=== PATIENT | male | born 1935 | race Caucasian/White ===

== ENCOUNTER 2018-02-27 08:54 | Inpatient (IN) | payer MEDICARE ==
[~2018-02-27] VITALS: Ht 165.1 cm; Wt 97.6 kg
[~2018-02-27 08:54] MED LIST: ATOR20TA PO; CHOL100046 PO; FERR325T28 PO; FLUO20CA39 PO; GABA100C PO; GABA300C PO; LANTUS SQ; LORA0.5T PO; LOSA25TA96 PO; METO25TA6 PO; NORCO10T PO; OMEP-50 PO; WARF1TAB PO
[2018-02-27] MEDS ORDERED: GLIP5TAB26 PO (09:43)
[2018-02-27] MEDS ORDERED: LEVO500T2 PO (09:43)
[2018-02-27] MEDS ORDERED: FURO-150 PO (09:43)
[2018-02-27 10:25] VITALS: BP 136/66
[2018-02-27] MEDS ORDERED: pneumococcal 23-VAL P-sac vacc 25 mcg/0.5ml vial IMVAC ONE (10:25)
[2018-02-27] MEDS ORDERED: METO25TA6 PO (10:28)
[2018-02-27] MEDS ORDERED: vancomycin/NS 1 GM ADD-VANTAGE 250 ML X 1 DOSE IV ONE (10:35)
[2018-02-27] MEDS ORDERED: HYDROcodone/acetaminophen 10/325mg tab PO PRN (10:50)
[2018-02-27 11:00] VITALS: BP 125/54
[2018-02-27 11:01] LABS: BASOPHILS % (AUTO) 0.3 % (0-1); EOSINOPHILS # (AUTO) 0.5 X10'3 (0-0.9); EOSINOPHILS % (AUTO) 5.9 % (0-6); HEMATOCRIT 39.3 % (42.0-52.0); HEMOGLOBIN 12.8 g/dl (14.0-17.9); LYMPHOCYTES # (AUTO) 1.3 X10'3 (1.1-4.8); LYMPHOCYTES % (AUTO) 15.7 % (21-51); MEAN CORPUSCULAR HEMOGLOBIN 28.4 PG (27.0-31.0); MEAN CORPUSCULAR HGB CONC 32.6 % (33.0-36.5); MEAN CORPUSCULAR VOLUME 87.1 FL (78-98); MEAN PLATELET VOLUME 8.5 FL (7.4-10.4); MONOCYTES # (AUTO) 0.7 X10'3 (0-0.9); MONOCYTES % (AUTO) 8.9 % (2-12); NEUTROPHILS # (AUTO) 5.7 X10'3 (1.8-7.7); NEUTROPHILS % (AUTO) 69.2 % (42-75); PLATELET COUNT 279 X10'3 (140-440); RED BLOOD COUNT 4.51 X10'6 (4.70-6.10); WHITE BLOOD COUNT 8.2 X10'3 (4.5-11.0)
[2018-02-27 11:06] LABS: INR 2.6 INR; PROTHROMBIN TIME 25.9 SECONDS (9.0-12.0)
[2018-02-27 11:11] LABS: ANION GAP 9 (8-16); BLOOD UREA NITROGEN 36 MG/DL (7-18); CHLORIDE 106 MMOL/L (99-107); CREATININE 2.46 MG/DL (0.60-1.10); GLUCOSE 135 MG/DL (70-104); POTASSIUM 5.5 MMOL/L (3.5-5.1); SODIUM 142 MMOL/L (135-145); TOTAL CARBON DIOXIDE 26.7 MMOL/L (24-32)
[2018-02-27 11:12] LABS: ALANINE AMINOTRANSFERASE 40 U/L (12-78); ALBUMIN/GLOBULIN RATIO 0.8 (1.1-1.5); ALKALINE PHOSPHATASE 92 IU/L (46-116); ASPARTATE AMINO TRANSFERASE 34 U/L (10-37); BILIRUBIN,TOTAL 0.5 MG/DL (0.1-1.0); BUN/CREATININE RATIO 14.6 (5.4-32.0); CALCIUM 8.8 MG/DL (8.5-10.1); TOTAL PROTEIN 6.8 G/DL (6.4-8.2); eGFR 25 ML/MIN
[2018-02-27] MEDS ORDERED: pantoprazole 40mg Tablet.DR PO ONE (11:30)
[2018-02-27] MEDS: metoprolol tartrate 25mg tablet PO SCH ×3 (12:00→20:48)
[2018-02-27] MEDS ORDERED: insulin glargine (Lantus) pen - multi-dose SQ SCH ×2 (12:30→21:00)
[2018-02-27] MEDS: FLUoxetine 20mg capsule PO SCH (14:14)
[2018-02-27] MEDS: vitamin D (cholecalciferol) 1,000 unit tablet PO SCH (14:15)
[2018-02-27] MEDS: gabapentin 300mg capsule PO SCH ×3 (14:15→20:48)
[2018-02-27] MEDS: gabapentin 100mg capsule PO SCH ×3 (14:16→20:48)
[2018-02-27] MEDS: furosemide 20MG tablet PO SCH (14:16)
[2018-02-27 15:00] VITALS: BP 101/49
[2018-02-27] MEDS ORDERED: INSU100V9 SQ (16:25)
[2018-02-27 19:00] VITALS: BP 105/54
[2018-02-27] MEDS: LORazepam 0.5 MG tablet PO SCH (20:48)
[2018-02-27] MEDS: atorvastatin 20mg tablet PO SCH (20:49)
[2018-02-27 23:00] VITALS: BP 94/61
[2018-02-28 03:00] VITALS: BP 128/63
[2018-02-28] MEDS ORDERED: dextrose ORAL solution 15 GM/59 ML bottle PO PRN ×2 (06:10)
[2018-02-28] MEDS ORDERED: dextrose 50%-water 50ml dispensing syringe IV PRN ×2 (06:10)
[2018-02-28] MEDS ORDERED: glucagon, human recombinant 1mg kit SUBCUT PRN (06:10)
[2018-02-28] MEDS ORDERED: MESSAGE TO PHARMACY PO ONE (06:10)
[2018-02-28] MEDS ORDERED: magnesium hydroxide 30ml (MOM) UD suspension PO PRN (06:10)
[2018-02-28 07:00] VITALS: BP 110/65
[2018-02-28 07:01] LABS: BASOPHILS % (AUTO) 0.6 % (0-1); EOSINOPHILS # (AUTO) 0.6 X10'3 (0-0.9); EOSINOPHILS % (AUTO) 8.2 % (0-6); HEMATOCRIT 38.1 % (42.0-52.0); HEMOGLOBIN 12.5 g/dl (14.0-17.9); LYMPHOCYTES # (AUTO) 1.3 X10'3 (1.1-4.8); LYMPHOCYTES % (AUTO) 16.9 % (21-51); MEAN CORPUSCULAR HEMOGLOBIN 28.6 PG (27.0-31.0); MEAN CORPUSCULAR HGB CONC 32.7 % (33.0-36.5); MEAN CORPUSCULAR VOLUME 87.5 FL (78-98); MEAN PLATELET VOLUME 8.4 FL (7.4-10.4); MONOCYTES # (AUTO) 0.8 X10'3 (0-0.9); MONOCYTES % (AUTO) 11.1 % (2-12); NEUTROPHILS # (AUTO) 4.7 X10'3 (1.8-7.7); NEUTROPHILS % (AUTO) 63.2 % (42-75); PLATELET COUNT 267 X10'3 (140-440); RED BLOOD COUNT 4.36 X10'6 (4.70-6.10); RED CELL DISTRIBUTION WIDTH 14.4 % (11.5-14.5); WHITE BLOOD COUNT 7.5 X10'3 (4.5-11.0)
[2018-02-28 07:12] LABS: INR 2.1 INR; PROTHROMBIN TIME 21.4 SECONDS (9.0-12.0)
[2018-02-28 07:16] LABS: ALBUMIN 2.8 G/DL (3.4-5.0); ANION GAP 9 (8-16); BLOOD UREA NITROGEN 38 MG/DL (7-18); CALCIUM 9.1 MG/DL (8.5-10.1); CHLORIDE 104 MMOL/L (99-107); CREATININE 2.53 MG/DL (0.60-1.10); GLUCOSE 142 MG/DL (70-104); SODIUM 141 MMOL/L (135-145); TOTAL CARBON DIOXIDE 28.2 MMOL/L (24-32); eGFR 25 ML/MIN
[2018-02-28] MEDS: pantoprazole 40mg Tablet.DR PO SCH (07:16)
[2018-02-28] MEDS: LORazepam 0.5 MG tablet PO SCH ×2 (07:16→20:10)
[2018-02-28] MEDS: furosemide 20MG tablet PO SCH (07:16)
[2018-02-28] MEDS: gabapentin 300mg capsule PO SCH ×4 (07:16→20:11)
[2018-02-28] MEDS: ferrous sulfate 325mg tablet PO SCH (07:17)
[2018-02-28] MEDS: metoprolol tartrate 25mg tablet PO SCH ×2 (07:17→20:10)
[2018-02-28] MEDS: gabapentin 100mg capsule PO SCH ×4 (07:17→20:11)
[2018-02-28] MEDS: vitamin D (cholecalciferol) 1,000 unit tablet PO SCH (07:21)
[2018-02-28] MEDS: FLUoxetine 20mg capsule PO SCH (07:21)
[2018-02-28] MEDS: docusate sod 100mg capsule PO SCH ×2 (07:21→20:00)
[2018-02-28] MEDS ORDERED: losartan 25mg tablet PO SCH (08:00)
[2018-02-28] MEDS ORDERED: ondansetron/PF 4mg/2ml inj IV PRN (08:10)
[2018-02-28] MEDS: vancomycin inj 1,250 MG in normal saline 250ml IV soln 250 ML IV SCH (10:50)
[2018-02-28 11:00] VITALS: BP 104/52
[2018-02-28 15:00] VITALS: BP 104/58
[2018-02-28 19:00] VITALS: BP 127/65
[2018-02-28] MEDS: atorvastatin 20mg tablet PO SCH (20:11)
[2018-02-28] MEDS: insulin glargine (Lantus) pen - multi-dose SQ SCH (21:00)
[2018-02-28 23:00] VITALS: BP 121/72
[2018-03-01] VITALS (7 sets, daily range): BP systolic 98–118; BP diastolic 57–68
[2018-03-01 06:52] LABS: BASOPHILS % (AUTO) 0.5 % (0-1); EOSINOPHILS # (AUTO) 0.6 X10'3 (0-0.9); EOSINOPHILS % (AUTO) 7.3 % (0-6); HEMATOCRIT 38.2 % (42.0-52.0); HEMOGLOBIN 12.5 g/dl (14.0-17.9); LYMPHOCYTES # (AUTO) 1.2 X10'3 (1.1-4.8); LYMPHOCYTES % (AUTO) 13.2 % (21-51); MEAN CORPUSCULAR HEMOGLOBIN 28.4 PG (27.0-31.0); MEAN CORPUSCULAR HGB CONC 32.7 % (33.0-36.5); MEAN CORPUSCULAR VOLUME 86.8 FL (78-98); MEAN PLATELET VOLUME 8.7 FL (7.4-10.4); MONOCYTES % (AUTO) 11.1 % (2-12); NEUTROPHILS % (AUTO) 67.9 % (42-75); PLATELET COUNT 264 X10'3 (140-440); RED CELL DISTRIBUTION WIDTH 14.7 % (11.5-14.5); WHITE BLOOD COUNT 8.8 X10'3 (4.5-11.0)
[2018-03-01 06:53] LABS: INR 1.7 INR; PROTHROMBIN TIME 17.6 SECONDS (9.0-12.0)
[2018-03-01 06:54] LABS: ALBUMIN 2.8 G/DL (3.4-5.0); ANION GAP 9 (8-16); BLOOD UREA NITROGEN 41 MG/DL (7-18); BUN/CREATININE RATIO 18.4 (5.4-32.0); CALCIUM 8.9 MG/DL (8.5-10.1); CHLORIDE 103 MMOL/L (99-107); CREATININE 2.23 MG/DL (0.60-1.10); GLUCOSE 178 MG/DL (70-104); POTASSIUM 5.2 MMOL/L (3.5-5.1); SODIUM 139 MMOL/L (135-145); TOTAL CARBON DIOXIDE 27.1 MMOL/L (24-32); eGFR 28 ML/MIN
[2018-03-01] MEDS: gabapentin 300mg capsule PO SCH ×4 (07:05→20:46)
[2018-03-01] MEDS: gabapentin 100mg capsule PO SCH ×4 (07:06→20:49)
[2018-03-01] MEDS: pantoprazole 40mg Tablet.DR PO SCH (07:06)
[2018-03-01] MEDS: vitamin D (cholecalciferol) 1,000 unit tablet PO SCH (07:06)
[2018-03-01] MEDS: ferrous sulfate 325mg tablet PO SCH (07:07)
[2018-03-01] MEDS: LORazepam 0.5 MG tablet PO SCH ×2 (07:07→20:46)
[2018-03-01] MEDS: FLUoxetine 20mg capsule PO SCH (07:07)
[2018-03-01] MEDS: metoprolol tartrate 25mg tablet PO SCH ×2 (07:12→20:46)
[2018-03-01] MEDS: furosemide 20MG tablet PO SCH (07:12)
[2018-03-01] MEDS: docusate sod 100mg capsule PO SCH ×2 (08:00→20:46)
[2018-03-01] MEDS: vancomycin inj 1,250 MG in normal saline 250ml IV soln 250 ML IV SCH (10:25)
[2018-03-01] MEDS: atorvastatin 20mg tablet PO SCH (20:46)
[2018-03-01] MEDS ORDERED: enoxaparin 100mg/ml syringe SUBCUT ONE (21:00)
[2018-03-01] MEDS: insulin Lispro (HumaLOG) vial - multi-dose SQ SCH (23:03)
[2018-03-01] MEDS: insulin glargine (Lantus) pen - multi-dose SQ SCH (23:08)
[2018-03-02] VITALS (11 sets, daily range): BP systolic 86–136; BP diastolic 53–80
[2018-03-02 05:38] LABS: INR 1.5 INR; PROTHROMBIN TIME 15.8 SECONDS (9.0-12.0)
[2018-03-02 05:58] LABS: ALBUMIN 2.8 G/DL (3.4-5.0); ANION GAP 9 (8-16); BLOOD UREA NITROGEN 47 MG/DL (7-18); BUN/CREATININE RATIO 20.8 (5.4-32.0); CALCIUM 8.5 MG/DL (8.5-10.1); CHLORIDE 102 MMOL/L (99-107); CREATININE 2.26 MG/DL (0.60-1.10); GLUCOSE 174 MG/DL (70-104); POTASSIUM 5.2 MMOL/L (3.5-5.1); SODIUM 140 MMOL/L (135-145); TOTAL CARBON DIOXIDE 29.4 MMOL/L (24-32); eGFR 28 ML/MIN
[2018-03-02] MEDS: docusate sod 100mg capsule PO SCH ×2 (08:00→23:23)
[2018-03-02 08:09] LABS: HEMATOCRIT 36.1 % (42.0-52.0); HEMOGLOBIN 12.4 g/dl (14.0-17.9); MEAN CORPUSCULAR HEMOGLOBIN 29.8 PG (27.0-31.0); MEAN CORPUSCULAR HGB CONC 34.3 % (33.0-36.5); MEAN CORPUSCULAR VOLUME 86.6 FL (78-98); MEAN PLATELET VOLUME 9.2 FL (7.4-10.4); PLATELET COUNT 234 X10'3 (140-440); RED BLOOD COUNT 4.17 X10'6 (4.70-6.10); RED CELL DISTRIBUTION WIDTH 13.6 % (11.5-14.5); WHITE BLOOD COUNT 8.9 X10'3 (4.5-11.0)
[2018-03-02 08:10] LABS: BASOPHILS # (AUTO) 0.1 X10'3 (0-0.2); BASOPHILS % (AUTO) 0.7 % (0-1); EOSINOPHILS # (AUTO) 0.6 X10'3 (0-0.9); EOSINOPHILS % (AUTO) 7.3 % (0-6); LYMPHOCYTES # (AUTO) 1.5 X10'3 (1.1-4.8); LYMPHOCYTES % (AUTO) 16.6 % (21-51); MONOCYTES # (AUTO) 1.1 X10'3 (0-0.9); MONOCYTES % (AUTO) 12.2 % (2-12); NEUTROPHILS # (AUTO) 5.6 X10'3 (1.8-7.7); NEUTROPHILS % (AUTO) 63.2 % (42-75)
[2018-03-02] MEDS: insulin Lispro (HumaLOG) vial - multi-dose SQ SCH ×2 (08:29→20:06)
[2018-03-02] MEDS: pantoprazole 40mg Tablet.DR PO SCH (08:30)
[2018-03-02] MEDS: LORazepam 0.5 MG tablet PO SCH ×2 (08:31→23:22)
[2018-03-02] MEDS: gabapentin 100mg capsule PO SCH ×4 (08:31→23:24)
[2018-03-02] MEDS: gabapentin 300mg capsule PO SCH ×4 (08:31→23:23)
[2018-03-02] MEDS: vitamin D (cholecalciferol) 1,000 unit tablet PO SCH (08:32)
[2018-03-02] MEDS: FLUoxetine 20mg capsule PO SCH (08:32)
[2018-03-02] MEDS: ferrous sulfate 325mg tablet PO SCH (08:33)
[2018-03-02] MEDS: metoprolol tartrate 25mg tablet PO SCH ×2 (08:33→23:22)
[2018-03-02] MEDS: furosemide 20MG tablet PO SCH (08:33)
[2018-03-02] MEDS: vancomycin inj 1,250 MG in normal saline 250ml IV soln 250 ML IV SCH (10:10)
[2018-03-02] MEDS ORDERED: midazolam 2 mg/2 ml injection ONE (16:27)
[2018-03-02] MEDS ORDERED: fentaNYL/PF 50MCG/1 ML 2ML syringe ONE (16:27)
[2018-03-02] MEDS ORDERED: lidocaine 1%/epinephrine 1:100,000 injection 50ml vial ONE (16:27)
[2018-03-02] MEDS ORDERED: ceFAZolin 1GM/D5W- ADD-VANTAGE 50 ML IV ONE (16:28)
[2018-03-02] MEDS ORDERED: ceFAZolin 1000mg inj ONE (16:28)
[2018-03-02] MEDS: insulin glargine (Lantus) pen - multi-dose SQ SCH (23:16)
[2018-03-02] MEDS: atorvastatin 20mg tablet PO SCH (23:23)
[2018-03-03 02:00] VITALS: BP 121/67
[2018-03-03 06:00] VITALS: BP 138/70
[2018-03-03 06:58] LABS: BASOPHILS # (AUTO) 0.1 X10'3 (0-0.2); BASOPHILS % (AUTO) 0.7 % (0-1); EOSINOPHILS # (AUTO) 0.5 X10'3 (0-0.9); EOSINOPHILS % (AUTO) 5.9 % (0-6); HEMATOCRIT 36.5 % (42.0-52.0); HEMOGLOBIN 12.4 g/dl (14.0-17.9); LYMPHOCYTES # (AUTO) 1.3 X10'3 (1.1-4.8); LYMPHOCYTES % (AUTO) 14.7 % (21-51); MEAN CORPUSCULAR HEMOGLOBIN 29.3 PG (27.0-31.0); MEAN CORPUSCULAR HGB CONC 33.9 % (33.0-36.5); MEAN CORPUSCULAR VOLUME 86.5 FL (78-98); NEUTROPHILS # (AUTO) 5.9 X10'3 (1.8-7.7); NEUTROPHILS % (AUTO) 67.7 % (42-75); PLATELET COUNT 257 X10'3 (140-440); RED BLOOD COUNT 4.22 X10'6 (4.70-6.10); RED CELL DISTRIBUTION WIDTH 13.7 % (11.5-14.5); WHITE BLOOD COUNT 8.8 X10'3 (4.5-11.0)
[2018-03-03 07:02] LABS: INR 1.3 INR; PROTHROMBIN TIME 13.3 SECONDS (9.0-12.0)
[2018-03-03 07:08] LABS: ALBUMIN 2.8 G/DL (3.4-5.0); ANION GAP 9 (8-16); BLOOD UREA NITROGEN 43 MG/DL (7-18); BUN/CREATININE RATIO 17.5 (5.4-32.0); CALCIUM 9.2 MG/DL (8.5-10.1); CHLORIDE 105 MMOL/L (99-107); CREATININE 2.46 MG/DL (0.60-1.10); GLUCOSE 202 MG/DL (70-104); POTASSIUM 4.9 MMOL/L (3.5-5.1); SODIUM 141 MMOL/L (135-145); TOTAL CARBON DIOXIDE 27.4 MMOL/L (24-32); eGFR 25 ML/MIN
[2018-03-03] MEDS: gabapentin 100mg capsule PO SCH ×4 (07:47→20:22)
[2018-03-03] MEDS: docusate sod 100mg capsule PO SCH ×2 (07:47→20:23)
[2018-03-03] MEDS: gabapentin 300mg capsule PO SCH ×4 (07:48→20:22)
[2018-03-03] MEDS: ferrous sulfate 325mg tablet PO SCH (07:48)
[2018-03-03] MEDS: pantoprazole 40mg Tablet.DR PO SCH (07:48)
[2018-03-03] MEDS: LORazepam 0.5 MG tablet PO SCH ×2 (07:48→20:22)
[2018-03-03] MEDS: metoprolol tartrate 25mg tablet PO SCH ×2 (07:49→20:22)
[2018-03-03] MEDS: FLUoxetine 20mg capsule PO SCH (07:50)
[2018-03-03] MEDS: vitamin D (cholecalciferol) 1,000 unit tablet PO SCH (07:50)
[2018-03-03] MEDS: furosemide 20MG tablet PO SCH (07:51)
[2018-03-03] MEDS: enoxaparin 100mg/ml syringe SUBCUT SCH (07:52)
[2018-03-03] MEDS ORDERED: enoxaparin 30mg/0.3ml syringe SUBCUT SCH (08:00)
[2018-03-03] MEDS: insulin Lispro (HumaLOG) vial - multi-dose SQ SCH ×3 (08:18→19:16)
[2018-03-03] MEDS ORDERED: WARF1TAB PO (08:51)
[2018-03-03] MEDS ORDERED: WARF-65 PO (08:51)
[2018-03-03] MEDS ORDERED: ENOX100D5 SUBCUT (09:03)
[2018-03-03] MEDS ORDERED: SULF1TAB49 PO (09:03)
[2018-03-03] MEDS ORDERED: VANCOMYCIN LEVEL IV ONE (09:30)
[2018-03-03 11:00] VITALS: BP 115/67
[2018-03-03] MEDS: vancomycin inj 1,250 MG in normal saline 250ml IV soln 250 ML IV SCH (11:02)
[2018-03-03 15:00] VITALS: BP 108/62
[2018-03-03 19:00] VITALS: BP 115/49
[2018-03-03] MEDS: atorvastatin 20mg tablet PO SCH (20:23)
[2018-03-03] MEDS ORDERED: warfarin 1mg tablet PO ONE (21:00)
[2018-03-03] MEDS: insulin glargine (Lantus) pen - multi-dose SQ SCH (21:22)
[2018-03-03 23:00] VITALS: BP 101/56
[2018-03-04 03:00] VITALS: BP 104/49
[2018-03-04 06:00] VITALS: BP 115/60
[2018-03-04 06:45] LABS: INR 1.2 INR; PROTHROMBIN TIME 12.2 SECONDS (9.0-12.0)
[2018-03-04 06:50] LABS: ALBUMIN 2.9 G/DL (3.4-5.0); ANION GAP 8 (8-16); BLOOD UREA NITROGEN 37 MG/DL (7-18); BUN/CREATININE RATIO 17.3 (5.4-32.0); CALCIUM 9.1 MG/DL (8.5-10.1); CHLORIDE 104 MMOL/L (99-107); CREATININE 2.14 MG/DL (0.60-1.10); GLUCOSE 166 MG/DL (70-104); POTASSIUM 5.1 MMOL/L (3.5-5.1); SODIUM 141 MMOL/L (135-145); TOTAL CARBON DIOXIDE 28.7 MMOL/L (24-32); eGFR 30 ML/MIN
[2018-03-04 07:13] LABS: BASOPHILS # (AUTO) 0.1 X10'3 (0-0.2); BASOPHILS % (AUTO) 0.7 % (0-1); EOSINOPHILS # (AUTO) 0.5 X10'3 (0-0.9); EOSINOPHILS % (AUTO) 6.2 % (0-6); HEMATOCRIT 39.4 % (42.0-52.0); HEMOGLOBIN 12.9 g/dl (14.0-17.9); LYMPHOCYTES # (AUTO) 1.4 X10'3 (1.1-4.8); LYMPHOCYTES % (AUTO) 15.9 % (21-51); MEAN CORPUSCULAR HEMOGLOBIN 28.5 PG (27.0-31.0); MEAN CORPUSCULAR HGB CONC 32.8 % (33.0-36.5); MEAN CORPUSCULAR VOLUME 86.9 FL (78-98); MEAN PLATELET VOLUME 9.1 FL (7.4-10.4); MONOCYTES % (AUTO) 11.3 % (2-12); NEUTROPHILS # (AUTO) 5.5 X10'3 (1.8-7.7); NEUTROPHILS % (AUTO) 65.9 % (42-75); PLATELET COUNT 238 X10'3 (140-440); RED BLOOD COUNT 4.54 X10'6 (4.70-6.10); RED CELL DISTRIBUTION WIDTH 13.8 % (11.5-14.5); WHITE BLOOD COUNT 8.5 X10'3 (4.5-11.0)
[2018-03-04] MEDS: docusate sod 100mg capsule PO SCH (08:00)
[2018-03-04] MEDS: insulin Lispro (HumaLOG) vial - multi-dose SQ SCH (08:34)
[2018-03-04] MEDS: ferrous sulfate 325mg tablet PO SCH (08:47)
[2018-03-04] MEDS: enoxaparin 100mg/ml syringe SUBCUT SCH (08:47)
[2018-03-04] MEDS: gabapentin 300mg capsule PO SCH (08:48)
[2018-03-04] MEDS: vitamin D (cholecalciferol) 1,000 unit tablet PO SCH (08:48)
[2018-03-04] MEDS: LORazepam 0.5 MG tablet PO SCH (08:48)
[2018-03-04] MEDS: furosemide 20MG tablet PO SCH (08:49)
[2018-03-04] MEDS: pantoprazole 40mg Tablet.DR PO SCH (08:52)
[2018-03-04] MEDS: FLUoxetine 20mg capsule PO SCH (08:52)
[2018-03-04] MEDS: metoprolol tartrate 25mg tablet PO SCH (08:52)
[2018-03-04] MEDS: gabapentin 100mg capsule PO SCH (08:53)
[2018-03-04] MEDS ORDERED: DOXY100C43 PO (09:13)
[2018-03-04] MEDS: vancomycin inj 1,250 MG in normal saline 250ml IV soln 250 ML IV SCH (10:00)
[2018-03-04] MEDS ORDERED: LACT1CAP65 PO (18:56)
[2018-03-04] MEDS ORDERED: warfarin 1mg tablet PO SCH (21:00)
[2018-03-07] MEDS ORDERED: warfarin 1mg tablet PO SCH (21:00)
== END 2018-03-04 11:55 | disposition home health service (06) | DRG 261 ==
LOC: PCU 3S 08:54
PROVIDERS: ADMIT Internal Medicine Interventional Cardiology; ATTEND Internal Medicine Interventional Cardiology
PROC: 3E0234Z Introduction of Serum, Toxoid and Vaccine into Muscle, Percutaneous Approach (ICD-10-PCS; 2018-02-27)
PROC: 0JWT0PZ Revision of Cardiac Rhythm Related Device in Trunk Subcutaneous Tissue and Fascia, Open Approach (ICD-10-PCS; principal; 2018-03-02)
DX: T82.7XXA Infection and inflammatory reaction due to other cardiac and vascular devices, implants and grafts, initial encounter (principal); N18.4 Chronic kidney disease, stage 4 (severe); E11.22 Type 2 diabetes mellitus with diabetic chronic kidney disease; E78.5 Hyperlipidemia, unspecified; F41.9 Anxiety disorder, unspecified; I12.9 Hypertensive chronic kidney disease with stage 1 through stage 4 chronic kidney disease, or unspecified chronic kidney disease; I48.91 Unspecified atrial fibrillation; F32.9 Major depressive disorder, single episode, unspecified; E87.5 Hyperkalemia; M48.061 Spinal stenosis, lumbar region without neurogenic claudication; G89.29 Other chronic pain; M54.9 Dorsalgia, unspecified; N40.0 Benign prostatic hyperplasia without lower urinary tract symptoms; Y83.1 Surgical operation with implant of artificial internal device as the cause of abnormal reaction of the patient, or of later complication, without mention of misadventure at the time of the procedure; Z95.2 Presence of prosthetic heart valve; Z23 Encounter for immunization; Z88.8 Allergy status to other drugs, medicaments and biological substances; Z79.899 Other long term (current) drug therapy; Z79.01 Long term (current) use of anticoagulants; Z79.4 Long term (current) use of insulin; Z86.73 Personal history of transient ischemic attack (TIA), and cerebral infarction without residual deficits; Y92.89 Other specified places as the place of occurrence of the external cause
CPT/HCPCS: 33222; 36415; 80048; 80053; 80202; 82948; 83036; 85025; 85610; 87070; 90732; 99152; 99153; A4620; A6258; A6260; J0690; J1650; J1815; J2250; J2405; J3010; J3370; J3490; J7030

== ENCOUNTER 2018-03-04 15:59 | Inpatient (IN) | payer MEDICARE ==
[~2018-03-04] VITALS: Ht 177.8 cm; Wt 96.0 kg
[~2018-03-04 15:59] MED LIST changes: +DOXY100C43 PO; +ENOX100D5 SUBCUT; +FURO-150 PO; +GLIP5TAB26 PO; +INSU100V9 SQ; -LANTUS SQ; -LOSA25TA96 PO; +SULF1TAB49 PO; +WARF-65 PO
[2018-03-04 17:47] LABS: INR 1.2 INR; PROTHROMBIN TIME 12.3 SECONDS (9.0-12.0)
[2018-03-04 17:53] LABS: ALANINE AMINOTRANSFERASE 38 U/L (12-78); ALBUMIN/GLOBULIN RATIO 0.7 (1.1-1.5); ALKALINE PHOSPHATASE 103 IU/L (46-116); ANION GAP 9 (8-16); BILIRUBIN,TOTAL 0.5 MG/DL (0.1-1.0); BLOOD UREA NITROGEN 41 MG/DL (7-18); BUN/CREATININE RATIO 19.3 (5.4-32.0); CALCIUM 9.3 MG/DL (8.5-10.1); CHLORIDE 102 MMOL/L (99-107); CREATININE 2.12 MG/DL (0.60-1.10); GLUCOSE 173 MG/DL (70-104); SODIUM 138 MMOL/L (135-145); TOTAL CARBON DIOXIDE 26.8 MMOL/L (24-32); TOTAL PROTEIN 7.2 G/DL (6.4-8.2); eGFR 30 ML/MIN
[2018-03-04 17:54] LABS: ASPARTATE AMINO TRANSFERASE 40 U/L (10-37); POTASSIUM 5.5 MMOL/L (3.5-5.1)
[2018-03-04] MEDS ORDERED: potassium Cl 20mEq in NS 1,000 ML IV SCH (17:59)
[2018-03-04] MEDS ORDERED: potassium Cl 40MEQ/NS 500ml 500 ML IV PRN ×2 (18:00)
[2018-03-04] MEDS ORDERED: ondansetron/PF 4mg/2ml inj IV PRN (18:00)
[2018-03-04] MEDS ORDERED: HYDROcodone/acetaminophen 5mg/325mg tablet PO PRN (18:00)
[2018-03-04] MEDS ORDERED: vancomycin/NS 1 GM ADD-VANTAGE 250 ML IV SCH (18:00)
[2018-03-04] MEDS ORDERED: HYDROcodone/acetaminophen 10/325mg tab PO PRN (18:00)
[2018-03-04] MEDS ORDERED: morphine 2 MG/ML inj. syringe IV PRN ×2 (18:00)
[2018-03-04] MEDS ORDERED: magnesium hydroxide 30ml (MOM) UD suspension PO PRN (18:00)
[2018-03-04] MEDS ORDERED: bisacodyl 10mg suppository rectal RC PRN (18:00)
[2018-03-04] MEDS ORDERED: magnesium 1gm/100ml D5W IVPB 100 ML IV PRN (18:00)
[2018-03-04] MEDS ORDERED: acetaminophen 325mg tablet PO PRN (18:00)
[2018-03-04] MEDS ORDERED: potassium Cl 20 mEq SR tablet PO PRN ×2 (18:00)
[2018-03-04] MEDS ORDERED: magnesium Cl slow-release 64mg tablet PO PRN (18:00)
[2018-03-04] MEDS ORDERED: magnesium 4gm in 100ml NS 100 ML IV PRN (18:00)
[2018-03-04] MEDS ORDERED: mag hydrox/Alum hydrox/simeth 30ml oral suspension PO PRN (18:00)
[2018-03-04] MEDS ORDERED: dextrose 50%-water 50ml dispensing syringe IV PRN ×2 (18:05)
[2018-03-04] MEDS ORDERED: glucagon, human recombinant 1mg kit SUBCUT PRN (18:05)
[2018-03-04] MEDS ORDERED: MESSAGE TO PHARMACY PO ONE (18:05)
[2018-03-04] MEDS ORDERED: dextrose ORAL solution 15 GM/59 ML bottle PO PRN ×2 (18:05)
[2018-03-04] MEDS ORDERED: sodium polystyrene sulfonate 15gm/60ml oral suspension PO ONE (18:15)
[2018-03-04] MEDS ORDERED: sodium bicarbonate (8.4%) 1 mEq/ml syringe IV ONE (18:15)
[2018-03-04] MEDS: CefTRIAXone/D5W-Rocephin 1gm 50 ML IV SCH (18:47)
[2018-03-04] MEDS: normal saline 1000ml 1,000 ML IV SCH (18:51)
[2018-03-04] MEDS ORDERED: LACT1CAP65 PO (18:56)
[2018-03-04 18:59] LABS: BASOPHILS # (AUTO) 0.1 X10'3 (0-0.2); BASOPHILS % (AUTO) 1.3 % (0-1); EOSINOPHILS # (AUTO) 0.6 X10'3 (0-0.9); EOSINOPHILS % (AUTO) 6.3 % (0-6); HEMATOCRIT 40.1 % (42.0-52.0); HEMOGLOBIN 13.8 g/dl (14.0-17.9); LYMPHOCYTES # (AUTO) 1.4 X10'3 (1.1-4.8); LYMPHOCYTES % (AUTO) 14.3 % (21-51); MEAN CORPUSCULAR HEMOGLOBIN 29.8 PG (27.0-31.0); MEAN CORPUSCULAR HGB CONC 34.3 % (33.0-36.5); MEAN CORPUSCULAR VOLUME 86.7 FL (78-98); MEAN PLATELET VOLUME 8.8 FL (7.4-10.4); MONOCYTES # (AUTO) 0.9 X10'3 (0-0.9); MONOCYTES % (AUTO) 9.4 % (2-12); NEUTROPHILS # (AUTO) 6.7 X10'3 (1.8-7.7); NEUTROPHILS % (AUTO) 68.7 % (42-75); PLATELET COUNT 264 X10'3 (140-440); RED BLOOD COUNT 4.62 X10'6 (4.70-6.10); RED CELL DISTRIBUTION WIDTH 13.6 % (11.5-14.5); WHITE BLOOD COUNT 9.7 X10'3 (4.5-11.0)
[2018-03-04] MEDS: vancomycin inj 1,250 MG in normal saline 250ml IV soln 250 ML IV SCH (19:49)
[2018-03-04] MEDS: docusate sod 100mg capsule PO SCH (20:00)
[2018-03-04] MEDS: insulin glargine (Lantus) pen - multi-dose SQ SCH (21:00)
[2018-03-04] MEDS ORDERED: warfarin 3mg tablet PO ONE (21:00)
[2018-03-04 22:00] VITALS: BP 118/63
[2018-03-05 02:00] VITALS: BP 114/67
[2018-03-05 06:00] VITALS: BP 117/60
[2018-03-05 07:02] LABS: INR 1.3 INR
[2018-03-05 07:05] LABS: ALANINE AMINOTRANSFERASE 35 U/L (12-78); ALBUMIN 2.7 G/DL (3.4-5.0); ALBUMIN/GLOBULIN RATIO 0.7 (1.1-1.5); ALKALINE PHOSPHATASE 96 IU/L (46-116); ANION GAP 8 (8-16); ASPARTATE AMINO TRANSFERASE 29 U/L (10-37); BILIRUBIN,TOTAL 0.4 MG/DL (0.1-1.0); BLOOD UREA NITROGEN 35 MG/DL (7-18); BUN/CREATININE RATIO 18.1 (5.4-32.0); CALCIUM 8.2 MG/DL (8.5-10.1); CHLORIDE 104 MMOL/L (99-107); CREATININE 1.93 MG/DL (0.60-1.10); GLUCOSE 167 MG/DL (70-104); MAGNESIUM 1.8 MG/DL (1.5-2.4); POTASSIUM 4.5 MMOL/L (3.5-5.1); SODIUM 142 MMOL/L (135-145); TOTAL CARBON DIOXIDE 29.6 MMOL/L (24-32); TOTAL PROTEIN 6.4 G/DL (6.4-8.2); eGFR 34 ML/MIN
[2018-03-05 07:25] LABS: BASOPHILS # (AUTO) 0.1 X10'3 (0-0.2); BASOPHILS % (AUTO) 0.9 % (0-1); EOSINOPHILS # (AUTO) 0.6 X10'3 (0-0.9); EOSINOPHILS % (AUTO) 7.8 % (0-6); HEMATOCRIT 37.7 % (42.0-52.0); LYMPHOCYTES # (AUTO) 1.1 X10'3 (1.1-4.8); LYMPHOCYTES % (AUTO) 14.7 % (21-51); MEAN CORPUSCULAR HEMOGLOBIN 30.1 PG (27.0-31.0); MEAN CORPUSCULAR HGB CONC 34.5 % (33.0-36.5); MEAN CORPUSCULAR VOLUME 87.4 FL (78-98); MEAN PLATELET VOLUME 8.8 FL (7.4-10.4); MONOCYTES # (AUTO) 0.9 X10'3 (0-0.9); MONOCYTES % (AUTO) 11.8 % (2-12); NEUTROPHILS # (AUTO) 4.6 X10'3 (1.8-7.7); NEUTROPHILS % (AUTO) 64.8 % (42-75); PLATELET COUNT 249 X10'3 (140-440); RED BLOOD COUNT 4.32 X10'6 (4.70-6.10); RED CELL DISTRIBUTION WIDTH 13.8 % (11.5-14.5); WHITE BLOOD COUNT 7.3 X10'3 (4.5-11.0)
[2018-03-05] MEDS: docusate sod 100mg capsule PO SCH ×2 (08:00→20:00)
[2018-03-05] MEDS: K and/or MAG REPLACEMENT MC SCH (08:00)
[2018-03-05] MEDS: normal saline 1000ml 1,000 ML IV SCH ×2 (08:38→22:56)
[2018-03-05] MEDS: CefTRIAXone/D5W-Rocephin 1gm 50 ML IV SCH (09:12)
[2018-03-05] MEDS: enoxaparin 100mg/ml syringe SUBCUT SCH (09:12)
[2018-03-05 11:00] VITALS: BP 117/53
[2018-03-05] MEDS: insulin Lispro (HumaLOG) vial - multi-dose SQ SCH (12:59)
[2018-03-05] MEDS ORDERED: HYDROcodone/acetaminophen 10/325mg tab PO PRN (13:40)
[2018-03-05] MEDS: FLUoxetine 20mg capsule PO SCH (14:17)
[2018-03-05] MEDS: pantoprazole 40mg Tablet.DR PO SCH (14:17)
[2018-03-05 15:00] VITALS: BP 135/69
[2018-03-05] MEDS: gabapentin 100mg capsule PO SCH ×2 (16:32→20:45)
[2018-03-05 19:00] VITALS: BP 127/58
[2018-03-05] MEDS: metoprolol tartrate 25mg tablet PO SCH (20:46)
[2018-03-05] MEDS: vancomycin inj 1,250 MG in normal saline 250ml IV soln 250 ML IV SCH (20:46)
[2018-03-05] MEDS: LORazepam 0.5 MG tablet PO SCH (20:46)
[2018-03-05] MEDS: insulin glargine (Lantus) pen - multi-dose SQ SCH (21:00)
[2018-03-05] MEDS ORDERED: warfarin 3mg tablet PO ONE (21:00)
[2018-03-05 23:00] VITALS: BP 132/73
[2018-03-06 03:00] VITALS: BP 126/61
[2018-03-06 05:17] LABS: INR 1.4 INR; PROTHROMBIN TIME 14.6 SECONDS (9.0-12.0)
[2018-03-06 05:38] LABS: ALANINE AMINOTRANSFERASE 38 U/L (12-78); ALBUMIN 2.6 G/DL (3.4-5.0); ALBUMIN/GLOBULIN RATIO 0.7 (1.1-1.5); ALKALINE PHOSPHATASE 90 IU/L (46-116); ANION GAP 10 (8-16); ASPARTATE AMINO TRANSFERASE 34 U/L (10-37); BILIRUBIN,TOTAL 0.3 MG/DL (0.1-1.0); BLOOD UREA NITROGEN 28 MG/DL (7-18); BUN/CREATININE RATIO 15.1 (5.4-32.0); CALCIUM 8.1 MG/DL (8.5-10.1); CHLORIDE 106 MMOL/L (99-107); CREATININE 1.85 MG/DL (0.60-1.10); GLUCOSE 151 MG/DL (70-104); MAGNESIUM 1.8 MG/DL (1.5-2.4); POTASSIUM 4.3 MMOL/L (3.5-5.1); SODIUM 142 MMOL/L (135-145); TOTAL CARBON DIOXIDE 26.4 MMOL/L (24-32); TOTAL PROTEIN 6.1 G/DL (6.4-8.2); eGFR 35 ML/MIN
[2018-03-06 06:00] VITALS: BP 128/60
[2018-03-06] MEDS ORDERED: lactobacillus rhamnosus 10,000 MMU CELLS/CAPSULE PO SCH (08:00)
[2018-03-06] MEDS ORDERED: ferrous sulfate 325mg tablet PO SCH (08:00)
[2018-03-06] MEDS ORDERED: atorvastatin 20mg tablet PO SCH (08:00)
[2018-03-06] MEDS ORDERED: vitamin D (cholecalciferol) 1,000 unit tablet PO SCH (08:00)
[2018-03-06] MEDS: docusate sod 100mg capsule PO SCH (08:00)
[2018-03-06] MEDS: K and/or MAG REPLACEMENT MC SCH (08:00)
[2018-03-06] MEDS: CefTRIAXone/D5W-Rocephin 1gm 50 ML IV SCH (08:04)
[2018-03-06] MEDS: LORazepam 0.5 MG tablet PO SCH (08:05)
[2018-03-06] MEDS: enoxaparin 100mg/ml syringe SUBCUT SCH (08:05)
[2018-03-06] MEDS: metoprolol tartrate 25mg tablet PO SCH (08:05)
[2018-03-06] MEDS: pantoprazole 40mg Tablet.DR PO SCH (08:05)
[2018-03-06] MEDS: gabapentin 100mg capsule PO SCH (08:05)
[2018-03-06] MEDS: FLUoxetine 20mg capsule PO SCH (08:06)
[2018-03-06] MEDS: insulin Lispro (HumaLOG) vial - multi-dose SQ SCH (08:46)
[2018-03-06] MEDS ORDERED: ENOX100D5 SUBCUT (10:20)
[2018-03-06] MEDS ORDERED: DOXY-200 PO (10:22)
[2018-03-06] MEDS ORDERED: warfarin 4mg tablet PO ONE (21:00)
[2018-03-07] MEDS ORDERED: non-formulary drug (Warfarin Sodium 1 TABLET) PO SCH (08:00)
[2018-03-07] MEDS ORDERED: VANCOMYCIN LEVEL IV ONE (19:30)
== END 2018-03-06 13:06 | disposition home health service (06) | DRG 641 ==
LOC: ER 16:00 → ED HOLD 17:59 → EDBEDREQ 18:48 → PCU 3S 19:30
PROVIDERS: ADMIT Internal Medicine; ATTEND Internal Medicine
PROC: 4B02XSZ Measurement of Cardiac Pacemaker, External Approach (ICD-10-PCS; principal; 2018-03-04)
DX: E86.0 Dehydration (principal); I13.0 Hypertensive heart and chronic kidney disease with heart failure and stage 1 through stage 4 chronic kidney disease, or unspecified chronic kidney disease; R53.81 Other malaise; N18.3 Chronic kidney disease, stage 3 (moderate); G89.4 Chronic pain syndrome; D64.9 Anemia, unspecified; E11.22 Type 2 diabetes mellitus with diabetic chronic kidney disease; E78.00 Pure hypercholesterolemia, unspecified; E87.5 Hyperkalemia; G25.0 Essential tremor; Z60.2 Problems related to living alone; E78.5 Hyperlipidemia, unspecified; F32.9 Major depressive disorder, single episode, unspecified; W18.39XA Other fall on same level, initial encounter; I48.91 Unspecified atrial fibrillation; I50.9 Heart failure, unspecified; Z95.2 Presence of prosthetic heart valve; Z79.01 Long term (current) use of anticoagulants; Z79.899 Other long term (current) drug therapy; Z88.8 Allergy status to other drugs, medicaments and biological substances; Z86.718 Personal history of other venous thrombosis and embolism; Z86.73 Personal history of transient ischemic attack (TIA), and cerebral infarction without residual deficits; Y93.89 Activity, other specified; Y99.8 Other external cause status; Y92.091 Bathroom in other non-institutional residence as the place of occurrence of the external cause
CPT/HCPCS: 36415; 71045; 80053; 82948; 83036; 83735; 84132; 85025; 85610; 87040; 87070; 93005; 93308; 93880; 97116; 97162; 97530; 99285; A6258; J0696; J1650; J1815; J3370; J7030

== ENCOUNTER 2020-10-17 09:59 | Day surgery (SDC) | payer MEDICARE ==
[2020-10-17] VITALS (15 sets, daily range): BP systolic 91–130; BP diastolic 56–76
[~2020-10-17] VITALS: Ht 165.1 cm; Wt 95.3 kg
[~2020-10-17 09:59] MED LIST changes: -DOXY100C43 PO; -FURO-150 PO; -GABA300C PO; -GLIP5TAB26 PO; +LACT1CAP65 PO; +LOP25T PO; -METO25TA6 PO; -SULF1TAB49 PO; -WARF1TAB PO; +WARF1TAB2 PO
[2020-10-17] MEDS ORDERED: fentaNYL/PF 50MCG/1 ML 2ML syringe IV ONE (10:35)
[2020-10-17] MEDS ORDERED: normal saline 1000ml 1,000 ML IV SCH (10:35)
[2020-10-17] MEDS ORDERED: MIDAZolam 1mg/ml 10ml vial IV ONE (10:35)
[2020-10-17] MEDS ORDERED: ESOM40CA49 PO (11:18)
[2020-10-17] MEDS ORDERED: DOXY150T5 PO (11:18)
[2020-10-17] MEDS ORDERED: ALPH600C3 PO (11:18)
[2020-10-17] MEDS ORDERED: GLIP5TAB13 PO (11:18)
[2020-10-17] MEDS ORDERED: AMIO200T61 PO (11:18)
[2020-10-17] MEDS ORDERED: FURO-149 PO (11:18)
[2020-10-17 11:55] LABS: ALBUMIN 2.8 G/DL (3.4-5.0); ANION GAP 11 (8-16); BASOPHILS % (AUTO) 0.6 % (0-1); BLOOD UREA NITROGEN 63 MG/DL (7-18); BUN/CREATININE RATIO 22.8 (5.4-32.0); CALCIUM 9.1 MG/DL (8.5-10.1); CHLORIDE 106 MMOL/L (99-107); CREATININE 2.76 MG/DL (0.60-1.10); EOSINOPHILS # (AUTO) 0.1 X10'3 (0-0.9); EOSINOPHILS % (AUTO) 1.9 % (0-6); GLUCOSE 146 MG/DL (70-104); HEMATOCRIT 41.7 % (42.0-52.0); HEMOGLOBIN 13.2 g/dl (14.0-17.9); LYMPHOCYTES # (AUTO) 0.8 X10'3 (1.1-4.8); LYMPHOCYTES % (AUTO) 10.7 % (21-51); MEAN CORPUSCULAR HEMOGLOBIN 26.9 PG (27.0-31.0); MEAN CORPUSCULAR HGB CONC 31.6 g/dL (33.0-36.5); MEAN CORPUSCULAR VOLUME 85.1 FL (78-98); MEAN PLATELET VOLUME 8.8 FL (7.4-10.4); MONOCYTES # (AUTO) 0.7 X10'3 (0-0.9); MONOCYTES % (AUTO) 9.8 % (2-12); NEUTROPHILS # (AUTO) 5.7 X10'3 (1.8-7.7); PLATELET COUNT 286 X10'3 (140-440); POTASSIUM 4.9 MMOL/L (3.5-5.1); RED CELL DISTRIBUTION WIDTH 16.4 % (11.5-14.5); SODIUM 143 MMOL/L (135-145); TOTAL CARBON DIOXIDE 25.6 MMOL/L (24-32); WHITE BLOOD COUNT 7.4 X10'3 (4.5-11.0); eGFR 22 ML/MIN
== END 2020-10-17 15:20 | disposition home or self-care (01) ==
LOC: SSTAY O 09:59
PROVIDERS: ATTEND Internal Medicine Cardiovascular Disease
DX: I48.4 Atypical atrial flutter (principal); E11.22 Type 2 diabetes mellitus with diabetic chronic kidney disease; N18.4 Chronic kidney disease, stage 4 (severe); G47.33 Obstructive sleep apnea (adult) (pediatric); I42.9 Cardiomyopathy, unspecified; Z79.899 Other long term (current) drug therapy; Z98.890 Other specified postprocedural states; Z95.0 Presence of cardiac pacemaker; Z79.01 Long term (current) use of anticoagulants; Z95.3 Presence of xenogenic heart valve; Z86.73 Personal history of transient ischemic attack (TIA), and cerebral infarction without residual deficits; Z88.8 Allergy status to other drugs, medicaments and biological substances
CPT/HCPCS: 36415; 80048; 82140; 82948; 85025; 85610; 92960; 93005; J2250; J3010; J7030